=== PATIENT | female | born 1945 | race Caucasian/White ===

== ENCOUNTER 2022-05-09 06:40 | Inpatient (IN) | payer MEDICARE, OTHER, SELFPAY ==
[2022-05-09] VITALS (26 sets, daily range): BP systolic 65–154; BP diastolic 41–69; PULSE 73–90; RESP 14–28; TEMP 36.4–37.6; O2SAT 77–98; BMI 19.2; BMI 18.7
--- NOTE | 2022-05-09 06:51 | RAD_ITS ---
STUDY: X-RAY CHEST REASON FOR EXAM: Female, 76 years old. Cough TECHNIQUE: Single AP portable view of the chest. COMPARISON: None. FINDINGS: EKG electrodes are seen. There is hyperinflation of the lungs consistent with chronic obstructive lung disease (COPD). Increased linear markings at the right lung base suggestive of scarring. Blunting of the costophrenic angles bilaterally. Normal size heart. Calcified bilateral hilar lymph nodes. Normal visualized pulmonary arteries. Normal visualized aortic arch and descending thoracic aorta. Normal visualized thoracic spine. Right calcific tendinitis. There is no demonstrated abnormality of the visualized soft tissue structures of the upper abdomen. RAD/Chest 1 View (Portable) IMPRESSION: Hyperinflation and COPD with scarring at the right lung base. Electronically Signed: Alan Miranda MD at 9:16 EST ,
--- NOTE | 2022-05-09 06:51 | EKG12_ITS ---
Test Reason : Blood Pressure : / mmHG Vent. Rate : 076 BPM Atrial Rate : 076 BPM P-R Int : 144 ms QRS Dur : 074 ms QT Int : 404 ms P-R-T Axes : 080 063 058 degrees QTc Int : 454 ms Normal sinus rhythm Nonspecific ST and T wave abnormality Abnormal ECG Confirmed by KIET CLIFFORD, ANDREW ([id number]), news videotape editor EBER RICARDO ([id number]) on 05/10/2022 9:16:11 AM Referred By: CYNDEE Confirmed By:ANDREW SANTA MD
--- NOTE | 2022-05-09 06:54 | ED.VIS.DYS ---
HPI <Dr. Marc Claire, DO - Last Filed: 05/09/22 07:05> History of Present Illness Chief Complaint: Shortness of Breath Informant: patient Onset/Context/Timing Onset: Days Context: gradual Timing: Continuous Worsened by: Nothing Relieved by: Nothing Associated Symptoms cough, rhinorrhea and clear sputum; Negative for post nasal drip, ear pain, fever, sore throat, subjective, chills or sweats Narrative Narrative: Patient presents with shortness of breath that has been getting worse over the past few days. Patient states she has been coughing up some clear sputum. Patient feels congested in her chest. Patient states it feels like there is heaviness in her chest. Patient admits to some rhinorrhea. Patient admits to some nausea and vomiting. Patient denies any fevers or chills. Patient denies any neck pain. Patient states she does have some pain between her shoulder blades. PFSH <Dr. 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 0.5 mg-joe-Zn tablet (Caltrate + D3 Plus Minerals) 1 tab PO DAILY SUPPLEMENT 05/09/22 [History Last Taken 05/08/22] fwhunwdlhsgcdiag-PNQ-okuyisx 2 mg-20 mg-325 mg effervescent tablet 2 ea PO BID PRN Heartburn 05/09/22 [History Last Taken 05/08/22] cholecalciferol (vitamin D3) 25 mcg (1,000 unit) tablet (Vitamin D3) 25 mcg PO DAILY SUPPLEMENT 05/09/22 [History Last Taken 05/08/22] ginkgo biloba 40 mg tablet 40 mg PO DAILY SUPPLEMENT 05/09/22 [History Last Taken 05/08/22] vaorvzhcmcpf-bgtvlrhl-kanmuo tablet 1 tab PO DAILY HEALTH MAINTENANCE 05/09/22 [History Last Taken 05/08/22] nicotine (polacrilex) 4 mg gum (Nicorette) 4 mg buccal Q2H 05/09/22 [History Last Taken 05/08/22] Allergy/AdvReac Type Severity Reaction Status Date / Time No Known Allergies Allergy Verified 05/09/22 06:41 Surgical History no surgical history no surgical history Social History Smoking Status: Current some day smoker tobacco type: cigarettes ROS <Dr. Marc Claire DO - Last Filed: 05/09/22 07:05> ROS ED Constitutional Constitutional ED: Denies chills or fever(s) Eyes Eyes: Denies blurry vision or change in vision ENT ENT ED: Reports rhinorrhea; Denies sore throat Cardiovascular Cardiovascular: Reports chest pain; Denies palpitations Respiratory/Chest Respiratory/Chest: Reports cough, dyspnea and sputum Gastrointestinal Gastrointestinal: Reports nausea and vomiting Genitourinary Genitourinary ED: Denies dysuria or hematuria Musculoskeletal Musculoskeletal: Denies back pain or neck pain Integumentary Denies abscess or rash Neurologic Neurologic: Denies headache(s) or weakness Allergic/Immunologic Allergic/Immunologic ED: Denies mouth swelling or urticaria EXAM <Dr. Marc Claire DO - Last Filed: 05/09/22 07:05> Physical Exam Const Vital Signs: 05/09/22 06:40 05/09/22 06:41 05/09/22 06:43 Temperature 99.2 F H 99.1 F Temperature Source Temporal Temporal Pulse Rate 88 88 Respiratory Rate 14 14 Respiratory Effort Respiratory Depth Respiratory Pattern Blood Pressure 154/69 H 154/69 H Blood Pressure Mean 97 97 Pulse Ox 77 93 77 Oxygen Delivery Method Room Air Nasal Cannula Room Air Oxygen Flow Rate (L/min) 4 05/09/22 06:45 05/09/22 07:01 05/09/22 07:02 Temperature Temperature Source Pulse Rate 85 Respiratory Rate 20 H Respiratory Effort Normal Respiratory Depth Normal Respiratory Pattern Normal Normal Blood Pressure Blood Pressure Mean Pulse Ox 95 Oxygen Delivery Method Nasal Cannula Nasal Cannula Oxygen Flow Rate (L/min) 4 4 05/09/22 07:43 05/09/22 07:57 05/09/22 09:12 Temperature 99.1 F Temperature Source Temporal Pulse Rate 82 88 84 Respiratory Rate 16 22 H 23 H Respiratory Effort Respiratory Depth Respiratory Pattern Tachypnea Blood Pressure 116/55 L 111/51 L Blood Pressure Mean 75 71 Pulse Ox 98 95 Oxygen Delivery Method Nasal Cannula Oxygen Flow Rate (L/min) 4 05/09/22 08:43 05/09/22 09:56 05/09/22 10:52 Temperature 99.0 F Temperature Source Temporal Pulse Rate 90 Respiratory Rate 24 H Respiratory Effort Respiratory Depth Respiratory Pattern Blood Pressure 110/51 L Blood Pressure Mean 70 Pulse Ox 98 96 90 Oxygen Delivery Method Nasal Cannula Nasal Cannula Nasal Cannula Oxygen Flow Rate (L/min) 4 3 1 05/09/22 10:53 Temperature Temperature Source Pulse Rate 77 Respiratory Rate 28 H Respiratory Effort Respiratory Depth Respiratory Pattern Blood Pressure 85/41 L Blood Pressure Mean 55 Pulse Ox 93 Oxygen Delivery Method Nasal Cannula Oxygen Flow Rate (L/min) 3 Positive well nourished and well developed General Appearance ED: well developed and NAD HEENT Reports moist mucous membranes Neck supple and no JVD Resp normal respiratory effort Auscultation: rhonchi and diminished lung sounds Cardio regular rate and regular rhythm Neuro oriented x3, CN's II-XII intact bilaterally and no sensory deficits noted Sensorium / Orientation: alert Motor Exam: strength 5/5 throughout <Dr. Romero Mazariegos MD - Last Filed: 05/09/22 11:35> Physical Exam Const Vital Signs: 05/09/22 06:40 05/09/22 06:41 05/09/22 06:43 Temperature 99.2 F H 99.1 F Temperature Source Temporal Temporal Pulse Rate 88 88 Respiratory Rate 14 14 Respiratory Effort Respiratory Depth Respiratory Pattern Blood Pressure 154/69 H 154/69 H Blood Pressure Mean 97 97 Pulse Ox 77 93 77 Oxygen Delivery Method Room Air Nasal Cannula Room Air Oxygen Flow Rate (L/min) 4 05/09/22 06:45 05/09/22 07:01 05/09/22 07:02 Temperature Temperature Source Pulse Rate 85 Respiratory Rate 20 H Respiratory Effort Normal Respiratory Depth Normal Respiratory Pattern Normal Normal Blood Pressure Blood Pressure Mean Pulse Ox 95 Oxygen Delivery Method Nasal Cannula Nasal Cannula Oxygen Flow Rate (L/min) 4 4 05/09/22 07:43 05/09/22 07:57 05/09/22 09:12 Temperature 99.1 F Temperature Source Temporal Pulse Rate 82 88 84 Respiratory Rate 16 22 H 23 H Respiratory Effort Respiratory Depth Respiratory Pattern Tachypnea Blood Pressure 116/55 L 111/51 L Blood Pressure Mean 75 71 Pulse Ox 98 95 Oxygen Delivery Method Nasal Cannula Oxygen Flow Rate (L/min) 4 05/09/22 08:43 05/09/22 09:56 05/09/22 10:52 Temperature 99.0 F Temperature Source Temporal Pulse Rate 90 Respiratory Rate 24 H Respiratory Effort Respiratory Depth Respiratory Pattern Blood Pressure 110/51 L Blood Pressure Mean 70 Pulse Ox 98 96 90 Oxygen Delivery Method Nasal Cannula Nasal Cannula Nasal Cannula Oxygen Flow Rate (L/min) 4 3 1 05/09/22 10:53 Temperature Temperature Source Pulse Rate 77 Respiratory Rate 28 H Respiratory Effort Respiratory Depth Respiratory Pattern Blood Pressure 85/41 L Blood Pressure Mean 55 Pulse Ox 93 Oxygen Delivery Method Nasal Cannula Oxygen Flow Rate (L/min) 3 [facility] <Dr. Marc Claire, DO - Last Filed: 05/09/22 07:05> [facility] Narrative Medical decision making narrative: EKG was obtained. On my interpretation, it showed a normal sinus rhythm with a rate of 76. [place] interval, QRS interval, and QTc intervals were all normal. [place] was normal. There are nonspecific ST-T wave changes. Sepsis labs were ordered. Patient was given a DuoNeb aerosol here. Portable chest x-ray was ordered. Care of the patient was turned over to the oncoming physician. Patient will likely need to be admitted because of her hypoxia of 77% on room air. Lab Data Labs: Laboratory Results - last 24 hr 05/09/22 05/09/22 05/09/22 07:00 07:00 07:00 WBC 4.3 L RBC 4.70 Hgb 15.0 Hct 45.4 MCV 96.6 MCH 31.9 MCHC 33.0 RDW Std Deviation 46.5 H RDW Coeff of James 12.9 Plt Count 211 MPV 10.1 Immature Gran % (Auto) 0.000 Neut % (Auto) 61.3 Lymph % (Auto) 26.6 [place] % (Auto) 11.9 H Eos % (Auto) 0.0 Baso % (Auto) 0.2 Absolute Neuts (auto) 2.6 Absolute Lymphs (auto) 1.14 Nucleated RBC % 0 PT 12.9 INR 1.0 APTT 26.8 Sodium 138 Potassium 4.1 Chloride 102 Carbon Dioxide 30.0 Anion Gap 6 BUN 11 Creatinine 0.72 Estim Creat Clear Calc 35.45 Est GFR (MDRD) Af Amer 101 Est GFR (MDRD) Non-Af 83 BUN/Creatinine Ratio 15.2 Glucose 116 H Lactic Acid Calcium 8.7 Total Bilirubin 0.50 AST 24 ALT 20 Alkaline Phosphatase 67 Troponin I High Sens 9 Total Protein 7.1 Albumin 3.8 Globulin 3.3 Albumin/Globulin Ratio 1.2 Urine Color Urine Clarity Urine pH Ur Specific [place] Urine Protein Urine Glucose (UA) Urine Ketones Urine Occult Blood Urine Nitrite Urine Bilirubin Urine Urobilinogen Ur Leukocyte Esterase Urine RBC Urine WBC Ur Squamous Epith Cells Urine Bacteria Urine Mucus 05/09/22 05/09/22 07:00 10:07 WBC RBC Hgb Hct MCV MCH MCHC RDW Std Deviation RDW Coeff of James Plt Count MPV Immature Gran % (Auto) Neut % (Auto) Lymph % (Auto) [place] % (Auto) Eos % (Auto) Baso % (Auto) Absolute Neuts (auto) Absolute Lymphs (auto) Nucleated RBC % PT INR APTT Sodium Potassium Chloride Carbon Dioxide Anion Gap BUN Creatinine Estim Creat Clear Calc Est GFR (MDRD) Af Amer Est GFR (MDRD) Non-Af BUN/Creatinine Ratio Glucose Lactic Acid 0.9 Calcium Total Bilirubin AST ALT Alkaline Phosphatase Troponin I High Sens Total Protein Albumin Globulin Albumin/Globulin Ratio Urine Color Yellow Urine Clarity Clear Urine pH 5.0 Ur Specific [place] 1.030 Urine Protein 15 H Urine Glucose (UA) Normal Urine Ketones 150 A* Urine Occult Blood 10 H Urine Nitrite Negative Urine Bilirubin Negative Urine Urobilinogen Normal Ur Leukocyte Esterase 25 H Urine RBC 0-5 SEEN Urine WBC 0-5 SEEN Ur Squamous Epith Cells 0-5 SEEN Urine Bacteria 0 SEEN Urine Mucus 4+ Radiography Diagnostic Testing: Clinical Impression(s) from Imaging Studies Chest X-Ray 05/09/22 06:51 IMPRESSION: Hyperinflation and COPD with scarring at the right lung base. Electronically Signed: Alan Miranda MD at 9:16 EST Reading Location ID and State: [address] [place] [address] , Service support , EKG Initial EKG: Attestation: I personally reviewed and interpreted this EKG as follows: Interpretation: Sinus Rhythm (76) and Non-Specific ST Changes Prior EKG tracings: not available for review Prior: No Prior <Dr. Romero Mazariegos MD - Last Filed: 05/09/22 11:35> [facility] Narrative Medical decision making narrative: EKG was obtained. On my interpretation, it showed a normal sinus rhythm with a rate of 76. [place] interval, QRS interval, and QTc intervals were all normal. [place] was normal. There are nonspecific ST-T wave changes. Sepsis labs were ordered. Patient was given a DuoNeb aerosol here. Portable chest x-ray was ordered. Care of the patient was turned over to the oncoming physician. Patient will likely need to be admitted because of her hypoxia of 77% on room air. I went and saw the patient also. I got history. Patient is actually on no medications. She has had no surgeries. She states she does have a history of COPD but has never been on inhalers. She has also not seen a physician for years. She states for the last 4 days she started feeling ill. She just did not have a lot of energy. Her appetite has been down. She feels a little dehydrated. She has been coughing. She brings up a little bit of clear sputum. She states she may have had some mild chills and fevers but never high enough that she felt the need to check her temperature. She denies chest pains. But she does feel congested. She is still smoking a small amount. When I see her she had finished her first treatment and was feeling a little bit better. She had oxygen at 98% on 4 L so we cut that back to 3 L and will follow her. We are pending further results. We tried to get the patient off oxygen. We got her down to 2 L and she was saturating in the mid to low 93% range. We dropped her to 1 L and she desaturated into the 80s and felt dyspneic. She is moved back up to 3 L and her saturations are 96 to 97% she feels better. She is moving better air. But with her hypoxia and symptoms I do not think we can get her home at this time. White count is just a little bit low. Hemoglobin and platelets are normal. INR PTT are normal. Electrolytes show no acute abnormalities LFTs are normal. Lactate is negative. Troponin is negative. Urine is a bit concentrated showing some degree of dehydration but is otherwise normal. Patient's blood pressure was a bit low. However, I went and checked her. It ends up that the blood pressure cuff was quite large and not placed well. We have had several blood pressure checks that are all about 110 over 50s now. She states her blood pressure is always been on the lower side. She does not look sick septic or toxic. We have added procalcitonin and antibiotics as an adjunctive therapy. We will get her to PCU at this time rather than ICU. Lab Data Attestation: I reviewed the patient's lab results. Labs: Laboratory Results - last 24 hr 05/09/22 05/09/22 05/09/22 07:00 07:00 07:00 WBC 4.3 L RBC 4.70 Hgb 15.0 Hct 45.4 MCV 96.6 MCH 31.9 MCHC 33.0 RDW Std Deviation 46.5 H RDW Coeff of James 12.9 Plt Count 211 MPV 10.1 Immature Gran % (Auto) 0.000 Neut % (Auto) 61.3 Lymph % (Auto) 26.6 [place] % (Auto) 11.9 H Eos % (Auto) 0.0 Baso % (Auto) 0.2 Absolute Neuts (auto) 2.6 Absolute Lymphs (auto) 1.14 Nucleated RBC % 0 PT 12.9 INR 1.0 APTT 26.8 Sodium 138 Potassium 4.1 Chloride 102 Carbon Dioxide 30.0 Anion Gap 6 BUN 11 Creatinine 0.72 Estim Creat Clear Calc 35.45 Est GFR (MDRD) Af Amer 101 Est GFR (MDRD) Non-Af 83 BUN/Creatinine Ratio 15.2 Glucose 116 H Lactic Acid Calcium 8.7 Total Bilirubin 0.50 AST 24 ALT 20 Alkaline Phosphatase 67 Troponin I High Sens 9 Total Protein 7.1 Albumin 3.8 Globulin 3.3 Albumin/Globulin Ratio 1.2 Urine Color Urine Clarity Urine pH Ur Specific [place] Urine Protein Urine Glucose (UA) Urine Ketones Urine Occult Blood Urine Nitrite Urine Bilirubin Urine Urobilinogen Ur Leukocyte Esterase Urine RBC Urine WBC Ur Squamous Epith Cells Urine Bacteria Urine Mucus 05/09/22 05/09/22 07:00 10:07 WBC RBC Hgb Hct MCV MCH MCHC RDW Std Deviation RDW Coeff of James Plt Count MPV Immature Gran % (Auto) Neut % (Auto) Lymph % (Auto) [place] % (Auto) Eos % (Auto) Baso % (Auto) Absolute Neuts (auto) Absolute Lymphs (auto) Nucleated RBC % PT INR APTT Sodium Potassium Chloride Carbon Dioxide Anion Gap BUN Creatinine Estim Creat Clear Calc Est GFR (MDRD) Af Amer Est GFR (MDRD) Non-Af BUN/Creatinine Ratio Glucose Lactic Acid 0.9 Calcium Total Bilirubin AST ALT Alkaline Phosphatase Troponin I High Sens Total Protein Albumin Globulin Albumin/Globulin Ratio Urine Color Yellow Urine Clarity Clear Urine pH 5.0 Ur Specific [place] 1.030 Urine Protein 15 H Urine Glucose (UA) Normal Urine Ketones 150 A* Urine Occult Blood 10 H Urine Nitrite Negative Urine Bilirubin Negative Urine Urobilinogen Normal Ur Leukocyte Esterase 25 H Urine RBC 0-5 SEEN Urine WBC 0-5 SEEN Ur Squamous Epith Cells 0-5 SEEN Urine Bacteria 0 SEEN Urine Mucus 4+ Radiography Diagnostic Testing: Clinical Impression(s) from Imaging Studies Chest X-Ray 05/09/22 06:51 IMPRESSION: Hyperinflation and COPD with scarring at the right lung base. Electronically Signed: Alan Miranda MD at 9:16 EST , Discharge Plan Dx/Rx/DC Orders Clinical Impression: Hypoxia, Dyspnea, Acute exacerbation of chronic obstructive pulmonary disease Disposition Disposition: Acute Care [facility]
[2022-05-09] MEDS: Ipratropium/Albuterol Sulfate 3 ML AMPUL.NEB INHALATION ×2 (07:02→19:12)
[2022-05-09 07:16] LABS: Absolute Lymphocyte Count 1.14 X10^3/uL (0.83-4.51); Absolute Neutrophil Count 2.6 X10^3/uL (2.0-7.7); Basophil# 0.01 X10^3/uL; Basophil% 0.2 % (0-1); Hematocrit 45.4 % (37-47); Lymphocyte # 1.14 X10^3/ul (0.83-4.51); Lymphocyte % 26.6 % (19-41); Mean Corpuscular Hgb 31.9 pg (27.0-32.0); Mean Corpuscular Volume 96.6 fL (81-99); Mean Platelet Vol. 10.1 fl (6.2-12.0); Monocyte# 0.51 X10^3/uL; Monocyte% 11.9 % (0-10); NRBC Flagged by Analyzer 0 % (0-5); Neutrophil # 2.62 X10^3/uL (2.7-7.7); Neutrophil % 61.3 % (47-70); Platelet Count 211 K/mm3 (150-450); RBC Distribution Width CV 12.9 % (11.6-14.6); RBC Distribution Width SD 46.5 fl (35.1-43.9); White Blood Count 4.3 K/mm3 (4.4-11.0)
[2022-05-09 07:28] LABS: ALB/GLOB Ratio 1.2 RATIO (0.9-2.4); AST(SGOT) 24 U/L (15-37); Alanine Aminotransfer ALT/SGPT 20 U/L (13-56); Albumin, Serum 3.8 g/dL (3.2-5.0); Alkaline Phosphatase 67 U/L (45-117); Anion Gap 6 (5-15); BUN 11 mg/dL (7-18); BUN/Creat Ratio 15.2 RATIO (10-20); Calcium,Total 8.7 mg/dL (8.5-10.1); Chloride 102 mmol/L (98-107); Creatinine, Serum 0.72 mg/dL (0.55-1.02); EST Glomerular Filtration Rate 83 mL/min (>60); Est Glom Filt Rate - Afr Amer 101 mL/min (>60); Estimated Creatinine Clearance 35.45 ml/min; Globulin 3.3 g/dL (2.2-4.2); Glucose 116 mg/dL (74-106); Potassium 4.1 mmol/L (3.5-5.1); Protein, Total 7.1 g/dL (6.4-8.2); Sodium Level 138 mmol/L (136-145); Troponin-I HS 9 pg/mL (3.0-54.0)
[2022-05-09 07:35] LABS: Prothrombin Time (Protime)PT. 12.9 SECONDS (11.7-14.9)
[2022-05-09 07:37] LABS: Partial Thromboplast Time 26.8 Seconds (24.1-36.2)
[2022-05-09 07:42] LABS: Lactic Acid 0.9 mmol/L (0.4-1.9)
[2022-05-09] MEDS: Albuterol 2.5 MG/3 ML VIAL.NEB. INHALATION (07:57)
[2022-05-09] MEDS: MethylPREDNISolone 125 MG/2 ML Vial IV (07:57)
[2022-05-09 10:12] LABS: Bacteria 0 SEEN /hpf (None Seen)
[2022-05-09 10:16] LABS: Color, Urine Yellow (Yellow); Glucose, Dipstick Normal (Normal); Leukocyte Esterase-Dipstick 25 /ul (Negative); Nitrite-Dipstick Negative (Negative); Occult Blood-Urine 10 /ul (Negative); Protein-Dipstick 15 mg/dl (Negative); Urine Bilirubin Dipstick Negative (Negative); Urine Clarity Clear (Clear); Urine Urobilinogen Normal (Normal)
[2022-05-09 10:18] LABS: Ketone-Dipstick 150 mg/dl (Negative)
[2022-05-09 10:22] LABS: Mucous, Urine 4+ /hpf (<or=2+)
[2022-05-09 10:23] LABS: Red Blood Cells-Urine 0-5 SEEN /hpf (0-5); Squamous Epithelial Cells - UA 0-5 SEEN /hpf (5-10); White Blood Cells 0-5 SEEN /hpf (0-5)
[2022-05-09] MEDS: 0.9% Normal Saline 1,000 ML 999 ML IV (11:04)
--- NOTE | 2022-05-09 11:14 | HP.PCM.HOS_ITS ---
[facility] - General General Date of Admission: 05/09/22 Date of Service: 05/09/22 Chief Complaint: Progressive worsening of shortness of breath for 3 days. Worsening of cough with sputum production. HPI Narrative JOYCELYN MARINELLI, is a 76 F with history of chronic smoking and possible COPD came to ER with shortness of breath worsening for last 3 days. She has also had worsening of cough for last 3 days along with the sputum production. Her sputum is thick and clear. She denies any fever or sweating but has not measured temperature at home. Here in the ER she was afebrile. She had increased paroxysms of cough and had mild soreness in the interscapular area and the back. In the ED, patient was initially normotensive but got hypotensive about 11:00 and was restarted with IV fluid. Blood pressure currently is 112/66. She is also tachypneic and requires 2 L of oxygen.Chest x-ray individually reviewed shows hyperinflation, flattening of the diaphragm. Bibasilar atelectasis. No acute infiltrate. Past medical history: No formal testing PFT but Bearse diagnosis of COPD probably based on Imaging testStill smokes 3 to 4 cigarettes/day. Denies diabetes mellitus and hypertension. No coronary artery disease or other cardiac disease. Past surgical history: Significant. Social history: Started smoking at teenage, multiple relapses and remissions. Currently smokes 3 to 4 cigarettes/day. Denies chronic alcohol or substance us e. Family history: Patient's mother had COPD. Denies history of lung cancer in family. PFSH Medical History no medical history Home Medications calcium carb 300 mg-D3 800 unit-mag ox 25 mg-coppersmith apprentice 0.5 mg-joe-Zn tablet (Caltrate + D3 Plus Minerals) 1 tab PO DAILY SUPPLEMENT 05/09/22 [History Last Taken 05/08/22] cqumcimucwxeentr-APQ-vlxqmth 2 mg-20 mg-325 mg effervescent tablet 2 ea PO BID PRN Heartburn 05/09/22 [History Last Taken 05/08/22] cholecalciferol (vitamin D3) 25 mcg (1,000 unit) tablet (Vitamin D3) 25 mcg PO DAILY SUPPLEMENT 05/09/22 [History Last Taken 05/08/22] ginkgo biloba 40 mg tablet 40 mg PO DAILY SUPPLEMENT 05/09/22 [History Last Taken 05/08/22] vnhtszveulpo-ebtfjbba-evnlwu tablet 1 tab PO DAILY HEALTH MAINTENANCE 05/09/22 [History Last Taken 05/08/22] nicotine (polacrilex) 4 mg gum (Nicorette) 4 mg buccal Q2H 05/09/22 [History Last Taken 05/08/22] Allergy/AdvReac Type Severity Reaction Status Date / Time No Known Allergies Allergy Verified 05/09/22 06:41 Surgical History no surgical history Social History Smoking Status: Current some day smoker tobacco type: cigarettes ROS ROS Narrative Constitutional: Reports fatigue and weakness denies fever. Looks thin, HEENT: Reports systems reviewed and no addt'l complaints, except as documented Respiratory/Chest: As described in HPI Gastrointestinal: Denies coffee ground emesis, hematemesis or vomiting Genitourinary: Denies burning urination or new urinary tract symptoms Musculoskeletal: Denies joint pain and limited range of motion Neurologic: Denies seizure-like activity. No focal weakness or numbness. No history of stroke. skin: No ulcer. No rash Endocrinology: Reports systems reviewed and no addt'l complaints, except as documented Hematologic/Lymphatic: Reports systems reviewed and no addt'l complaints, except as documented Rest 14 ROS are negative except as mentioned in HPI Vital Signs Vital Signs Vital Signs: 05/09/22 06:40 05/09/22 06:41 05/09/22 06:43 Temperature 99.2 F H 99.1 F Temperature Source Temporal Temporal Pulse Rate 88 88 Respiratory Rate 14 14 Respiratory Effort Respiratory Depth Respiratory Pattern Blood Pressure 154/69 H 154/69 H Blood Pressure Mean 97 97 Pulse Ox 77 93 77 Oxygen Delivery Method Room Air Nasal Cannula Room Air Oxygen Flow Rate (L/min) 4 05/09/22 06:45 05/09/22 07:01 05/09/22 07:02 Temperature Temperature Source Pulse Rate 85 Respiratory Rate 20 H Respiratory Effort Normal Respiratory Depth Normal Respiratory Pattern Normal Normal Blood Pressure Blood Pressure Mean Pulse Ox 95 Oxygen Delivery Method Nasal Cannula Nasal Cannula Oxygen Flow Rate (L/min) 4 4 05/09/22 07:43 05/09/22 07:57 05/09/22 09:12 Temperature 99.1 F Temperature Source Temporal Pulse Rate 82 88 84 Respiratory Rate 16 22 H 23 H Respiratory Effort Respiratory Depth Respiratory Pattern Tachypnea Blood Pressure 116/55 L 111/51 L Blood Pressure Mean 75 71 Pulse Ox 98 95 Oxygen Delivery Method Nasal Cannula Oxygen Flow Rate (L/min) 4 05/09/22 08:43 05/09/22 09:56 05/09/22 10:52 Temperature 99.0 F Temperature Source Temporal Pulse Rate 90 Respiratory Rate 24 H Respiratory Effort Respiratory Depth Respiratory Pattern Blood Pressure 110/51 L Blood Pressure Mean 70 Pulse Ox 98 96 90 Oxygen Delivery Method Nasal Cannula Nasal Cannula Nasal Cannula Oxygen Flow Rate (L/min) 4 3 1 05/09/22 10:53 Temperature Temperature Source Pulse Rate 77 Respiratory Rate 28 H Respiratory Effort Respiratory Depth Respiratory Pattern Blood Pressure 85/41 L Blood Pressure Mean 55 Pulse Ox 93 Oxygen Delivery Method Nasal Cannula Oxygen Flow Rate (L/min) 3 Weight Weight: 101 lb 13.657 oz Body Mass Index (BMI) 19.2 Physical Exam Narrative Physical exam: General: Alert, Oriented x3, Cooperative, BMI 18.7 kg/m? HEENT: Atraumatic, PERRLA, EOMI, Normocephalic Oral: No Gingival or Mucosal Lesions/ Ulcerations Neck: Supple, No JVD, Negative Carotid Bruits Lungs: Air entry Severely diminished in both lungs. bilateral expiratory rhonchi and wheezing. Tachypnea. Mild hypoxia Cardiovascular: Regular rate, Regular Rhythm, Normal S1, Normal S2, No murmurs Abdomen: Bowel Sounds Present, Soft, Non Tender, Non-Distended : No renal angle tenderness. No suprapubic tenderness. Extremities: No edema, Capillary Refill Less than 3 Seconds Skin: No rashes, No breakdown Musculoskeletal: No Tenderness to Palpation of Joints or Extremities. Moderate muscle atrophy of extremities. ROM full. Neurological: Cranial nerves II-XII grossly intact, DTR 2+/4 and Symmetrical, Neuro grossly intact Psych/Mental Status: Normal Affect, Appropriate. Results Lab / Micro Data Result Diagrams: 05/09/22 07:00 05/09/22 07:00 Labs: Laboratory Results - last 24 hr 05/09/22 07:00: WBC 4.3 L, RBC 4.70, Hgb 15.0, Hct 45.4, MCV 96.6, MCH 31.9, MCHC 33.0, RDW Std Deviation 46.5 H, RDW Coeff of James 12.9, Plt Count 211, MPV 10.1, Immature Gran % (Auto) 0.000, Neut % (Auto) 61.3, Lymph % (Auto) 26.6, [place] % (Auto) 11.9 H, Eos % (Auto) 0.0, Baso % (Auto) 0.2, Absolute Neuts (auto) 2.6, Absolute Lymphs (auto) 1.14, Nucleated RBC % 0 05/09/22 07:00: PT 12.9, INR 1.0, APTT 26.8 05/09/22 07:00: Sodium 138, Potassium 4.1, Chloride 102, Carbon Dioxide 30.0, Anion Gap 6, BUN 11, Creatinine 0.72, Estim Creat Clear Calc 35.45, Est GFR (MDRD) Af Amer 101, Est GFR (MDRD) Non-Af 83, BUN/Creatinine Ratio 15.2, Glucose 116 H, Calcium 8.7, Total Bilirubin 0.50, AST 24, ALT 20, Alkaline Phosphatase 67, Troponin I High Sens 9, Total Protein 7.1, Albumin 3.8, Globulin 3.3, Albumin/Globulin Ratio 1.2 05/09/22 07:00: Lactic Acid 0.9 05/09/22 10:07: Urine Color Yellow, Urine Clarity Clear, Urine pH 5.0, Ur Specific [place] 1.030, Urine Protein 15 H, Urine Glucose (UA) Normal, Urine Ketones 150 A*, Urine Occult Blood 10 H, Urine Nitrite Negative, Urine Bilirubin Negative, Urine Urobilinogen Normal, Ur Leukocyte Esterase 25 H, Urine RBC 0-5 SEEN, Urine WBC 0-5 SEEN, Ur Squamous Epith Cells 0-5 SEEN, Urine Bacteria 0 SEEN, Urine Mucus 4+ Micro: Microbiology 05/09/22 07:02 Nasal Secretion SARS-CoV-2 & FLU Antigen (Rapid) - Final Radiology Impression Chest X-Ray 05/09/22 06:51 IMPRESSION: Hyperinflation and COPD with scarring at the right lung base. Electronically Signed: Alan Miranda MD at 9:16 EST , Assessment & Plan Assessment/Plan (1) Acute exacerbation of chronic obstructive pulmonary disease: PLAN: Plan Patient 76-year-old female who is being admitted for acute worsening of shortness of breath for 3 along with productive cough and tachypnea. 1. Most likely COPD exacerbation: Patient is being admitted in PCU. She has not been formally diagnosed COPD with PFT. DuoNeb every 4 hourly, Solu-Medrol 40 mg IV every 8 hourly, incentive spirometry, Zithromax, Mucinex and PEP.Sputum culture and blood culture has been ordered. Urinary antigens are ordered. Rapid SARS-CoV-2 and flu antigen are negative. Chest x-ray not showing airspace opacity/consolidation. 2. Hypotension in ED, most likely due to hemodynamic fluid shift: Patient has recovered after IV fluid. Patient not on antihypertensive medication. Continue IV fluid Ringer lactate 100 mL/h. Monitor intake and output 3. Chronic smoker: Patient counseled to quit smoking. On echocardiogram. Patient does not like nicotine patch. 4. Chronic moderate protein calorie malnutrition probably from COPD/smoking: Patient has moderate muscle atrophy of extremities, loss of subcutaneous fat and look overall thin. BMI 18.7 kg/m?. VTE prophylaxis: Moderate risk. Lovenox 40 mg subcu daily Living will/advanced directive/end of life care: Patient stated she had living will when her was alive back in 70s. After discussion of benefits/risks procedures involved with full code, DNR CC arrest and DNR CC, the patient and her daughter near the bedside opted for full code. Patient does want artificial life support including intubation, tube feed, ventilator and/chest compression, central venous catheter, vasopressor and DC shock if needed Total time spent in [id number] encounter in discussion of advanced directive 16 minutes. Clinical Impression(s) from Imaging Studies Chest X-Ray 05/09/22 06:51 IMPRESSION: Hyperinflation and COPD with scarring at the right lung base. Microbiology Past 72 Hours 05/09/22 07:02 Nasal Secretion SARS-CoV-2 & FLU Antigen (Rapid) - Final Laboratory Results 05/09/22 07:00: WBC 4.3 L, RBC 4.70, Hgb 15.0, Hct 45.4, MCV 96.6, MCH 31.9, MCHC 33.0, RDW Std Deviation 46.5 H, RDW Coeff of James 12.9, Plt Count 211, MPV 10.1, Immature Gran % (Auto) 0.000, Neut % (Auto) 61.3, Lymph % (Auto) 26.6, [place] % (Auto) 11.9 H, Eos % (Auto) 0.0, Baso % (Auto) 0.2, Absolute Neuts (auto) 2.6, Absolute Lymphs (auto) 1.14, Nucleated RBC % 0 05/09/22 07:00: PT 12.9, INR 1.0, APTT 26.8 05/09/22 07:00: Sodium 138, Potassium 4.1, Chloride 102, Carbon Dioxide 30.0, Anion Gap 6, BUN 11, Creatinine 0.72, Estim Creat Clear Calc 35.45, Est GFR (MDRD) Af Amer 101, Est GFR (MDRD) Non-Af 83, BUN/Creatinine Ratio 15.2, Glucose 116 H, Calcium 8.7, Total Bilirubin 0.50, AST 24, ALT 20, Alkaline Phosphatase 67, Troponin I High Sens 9, Total Protein 7.1, Albumin 3.8, Globulin 3.3, Albumin/Globulin Ratio 1.2 05/09/22 07:00: Lactic Acid 0.9 05/09/22 07:00: Magnesium Pending 05/09/22 10:07: Urine Color Yellow, Urine Clarity Clear, Urine pH 5.0, Ur Specific [place] 1.030, Urine Protein 15 H, Urine Glucose (UA) Normal, Urine Ketones 150 A*, Urine Occult Blood 10 H, Urine Nitrite Negative, Urine Bilirubin Negative, Urine Urobilinogen Normal, Ur Leukocyte Esterase 25 H, Urine RBC 0-5 SEEN, Urine WBC 0-5 SEEN, Ur Squamous Epith Cells 0-5 SEEN, Urine Bacteria 0 SEEN, Urine Mucus 4+ 05/09/22 11:20: Procalcitonin 0.13 H Charges/Coding Visit Charges Inpatient E&M: 73605 Init Hosp L3 Procedures Hospitalists Procedures: 76670 Advncd Care Plan 30 Min
[2022-05-09] MEDS: Ceftriaxone 1 GM/50 ML BAG IV (11:58)
[2022-05-09 12:06] LABS: Procalcitonin 0.13 ng/mL (0.00-0.09)
[2022-05-09] MEDS: Enoxaparin 40 MG/0.4 ML Syringe SC (12:41)
[2022-05-09] MEDS: Lactated Ringers 1,000 ML 100 ML IV ×2 (12:41→20:10)
[2022-05-09 12:47] LABS: Magnesium 2.2 mg/dL (1.6-2.6)
[2022-05-09] MEDS: Azithromycin 250 MG Tablet 500 MG PO (13:31)
[2022-05-09] MEDS: guaiFENesin 1,200 MG Tablet 1200 MG PO ×2 (13:31→20:08)
[2022-05-09] MEDS: Benzonatate 100 MG Capsule 200 MG PO ×2 (13:37→20:09)
[2022-05-09] MEDS: Ensure Plus High Protein 120 ML LIQUID PO (16:45)
[2022-05-10] VITALS (15 sets, daily range): BP systolic 107–119; BP diastolic 47–58; PULSE 53–81; RESP 16–20; TEMP 36.6–37.2; O2SAT 92–98
[2022-05-10] MEDS: Benzonatate 100 MG Capsule 200 MG PO ×3 (06:02→21:22)
[2022-05-10 06:24] LABS: Absolute Lymphocyte Count 1.08 X10^3/uL (0.83-4.51); Absolute Neutrophil Count 4.2 X10^3/uL (2.0-7.7); Basophil# 0.01 X10^3/uL; Basophil% 0.2 % (0-1); Hematocrit 37.9 % (37-47); Hemoglobin 12.7 g/dL (12.0-15.0); Lymphocyte # 1.08 X10^3/ul (0.83-4.51); Lymphocyte % 17.8 % (19-41); Mean Corp Hgb Conc 33.5 g/dL (32-36); Mean Corpuscular Hgb 32.2 pg (27.0-32.0); Mean Corpuscular Volume 95.9 fL (81-99); Monocyte# 0.76 X10^3/uL; Monocyte% 12.5 % (0-10); NRBC Flagged by Analyzer 0 % (0-5); Platelet Count 187 K/mm3 (150-450); RBC Distribution Width CV 12.9 % (11.6-14.6); RBC Distribution Width SD 45.8 fl (35.1-43.9); Red Blood Count 3.95 M/mm3 (4.2-5.4); White Blood Count 6.1 K/mm3 (4.4-11.0)
[2022-05-10] MEDS: Ipratropium/Albuterol Sulfate 3 ML AMPUL.NEB INHALATION ×5 (06:50→23:45)
[2022-05-10 06:51] LABS: Anion Gap 2 (5-15); BUN 10 mg/dL (7-18); Calcium,Total 8.3 mg/dL (8.5-10.1); Chloride 106 mmol/L (98-107); Creatinine, Serum 0.45 mg/dL (0.55-1.02); EST Glomerular Filtration Rate 143 mL/min (>60); Est Glom Filt Rate - Afr Amer 173 mL/min (>60); Estimated Creatinine Clearance 34.99 ml/min; Glucose 122 mg/dL (74-106); Sodium Level 139 mmol/L (136-145)
[2022-05-10] MEDS: Cholecalciferol (VIT D3) 25 MCG TABLET (1,000 UNITS) PO (08:24)
[2022-05-10] MEDS: Azithromycin 250 MG Tablet 500 MG PO (08:24)
[2022-05-10] MEDS: guaiFENesin 1,200 MG Tablet 1200 MG PO ×2 (08:24→21:21)
[2022-05-10] MEDS: Enoxaparin 40 MG/0.4 ML Syringe SC (08:24)
[2022-05-10] MEDS: Ensure Plus High Protein 120 ML LIQUID PO (08:25)
--- NOTE | 2022-05-10 08:46 | PN.HOSP_ITS ---
Subjective Subjective Follow-up for COPD exacerbation Objective Data Objective Data Vital Signs: Vital Signs Temp Pulse Resp BP Pulse Ox O2 Del Method O2 Flow Rate 98.4 F 72 20 H 116/57 L 95 Nasal Cannula 2 05/10/22 05:10 05/10/22 07:00 05/10/22 06:50 05/10/22 05:10 05/10/22 06:50 05/10/22 06:50 05/10/22 06:50 Oxygen Flow Rate (L/min) 2 Oxygen Delivery Method Nasal Cannula Weight: 100 lb 8.493 oz Body Mass Index (BMI) 18.7 Intake & Output: Intake and Output for Last 24 Hours 05/08/22 05/09/22 05/10/22 23:59 23:59 23:59 Intake Total 2198.33 / 2198.33 1000 / 1000 Balance 2198.33 / 2198.33 1000 / 1000 Lab / Micro Data Result Diagrams: 05/10/22 05:40 05/10/22 05:40 Labs: Laboratory Results - last 24 hr 05/09/22 07:00: Magnesium 2.2 05/09/22 10:07: Urine Color Yellow, Urine Clarity Clear, Urine pH 5.0, Ur Specific [place] 1.030, Urine Protein 15 H, Urine Glucose (UA) Normal, Urine Ketones 150 A*, Urine Occult Blood 10 H, Urine Nitrite Negative, Urine Bilirubin Negative, Urine Urobilinogen Normal, Ur Leukocyte Esterase 25 H, Urine RBC 0-5 SEEN, Urine WBC 0-5 SEEN, Ur Squamous Epith Cells 0-5 SEEN, Urine Bacteria 0 SEEN, Urine Mucus 4+ 05/09/22 11:20: Procalcitonin 0.13 H 05/10/22 05:40: WBC 6.1, RBC 3.95 L, Hgb 12.7, Hct 37.9, MCV 95.9, MCH 32.2 H, MCHC 33.5, RDW Std Deviation 45.8 H, RDW Coeff of James 12.9, Plt Count 187, MPV 10.0, Immature Gran % (Auto) 0.500, Neut % (Auto) 69.0, Lymph % (Auto) 17.8 L, [place] % (Auto) 12.5 H, Eos % (Auto) 0.0, Baso % (Auto) 0.2, Absolute Neuts (auto) 4.2, Absolute Lymphs (auto) 1.08, Nucleated RBC % 0 05/10/22 05:40: Sodium 139, Potassium 4.0, Chloride 106, Carbon Dioxide 31.0, Anion Gap 2 L, BUN 10, Creatinine 0.45 L, Estim Creat Clear Calc 34.99, Est GFR (MDRD) Af Amer 173, Est GFR (MDRD) Non-Af 143, BUN/Creatinine Ratio 22.0 H, Glucose 122 H, Calcium 8.3 L Micro: Microbiology 05/09/22 16:10 Urine, Random Streptococcus pneumoniae Antigen (M - Final 05/09/22 16:10 Urine, Random Legionella Antigen - Final 05/09/22 07:02 Nasal Secretion SARS-CoV-2 & FLU Antigen (Rapid) - Final Radiography Diagnostic Testing: Radiology Impression Chest X-Ray 05/09/22 06:51 IMPRESSION: Hyperinflation and COPD with scarring at the right lung base. Electronically Signed: Alan Miranda MD at 9:16 EST , Physical Exam Narrative Did not significant improvement in her shortness of breath wheezing. Patient is still short of breath. Physical exam: General: Alert, Oriented x3, Cooperative, BMI 18.7 kg/m? HEENT: Atraumatic, PERRLA, EOMI, Normocephalic Oral: No Gingival or Mucosal Lesions/ Ulcerations Neck: Supple, No JVD, Negative Carotid Bruits Lungs: Air entry Severely diminished in both lungs. bilateral expiratory rhonchi and wheezing. Mild hypoxia Cardiovascular: Regular rate, Regular Rhythm, Normal S1, Normal S2, No murmurs Abdomen: Bowel Sounds Present, Soft, Non Tender, Non-Distended : No renal angle tenderness. No suprapubic tenderness. Extremities: No edema, Capillary Refill Less than 3 Seconds Skin: No rashes, No breakdown Musculoskeletal: No Tenderness to Palpation of Joints or Extremities. Moderate muscle atrophy of extremities. ROM full. Neurological: Cranial nerves II-XII grossly intact, DTR 2+/4 and Symmetrical, Neuro grossly intact Psych/Mental Status: Normal Affect, Appropriate. Assessment & Plan Assessment/Plan (1) Acute exacerbation of chronic obstructive pulmonary disease: PLAN: Plan Patient 76-year-old female who is being admitted for acute worsening of shortness of breath for 3 along with productive cough and tachypnea. 1. Most likely COPD exacerbation: Patient is being admitted in PCU. She has not been formally diagnosed COPD with PFT. DuoNeb every 4 hourly, Solu-Medrol 40 mg IV every 8 hourly, incentive spirometry, Zithromax, Mucinex and PEP.Sputum culture and blood culture has been ordered. Urinary antigens are ordered. Rapid SARS-CoV-2 and flu antigen are negative. Chest x-ray not showing airspace opacity/consolidation. 05/10: Continue bronchodilator DuoNeb every 4 hourly, IV Solu-Medrol, Mucinex, incentive spirometry and Pep. No fever. Tachypnea is better. Urinary antigens for Legionella and Streptococcus are negative. 2. Hypotension in ED, most likely due to hemodynamic fluid shift: Patient has recovered after IV fluid. Patient not on antihypertensive medication. Continue IV fluid Ringer lactate 100 mL/h. Monitor intake and output 05/10: Patient is maintaining blood pressure 116/57. Hypotension resolved. Procalcitonin mildly elevated. I do not think patient has sepsis therefore sepsis ruled out. 3. Chronic smoker: Patient counseled to quit smoking. On echocardiogram. Patient does not like nicotine patch. 4. Chronic moderate protein calorie malnutrition probably from COPD/smoking: Patient has moderate muscle atrophy of extremities, loss of subcutaneous fat and look overall thin. BMI 18.7 kg/m?. VTE prophylaxis: Moderate risk. Lovenox 40 mg subcu daily Total time of the visit including total time spent in counseling or coordination of care, (more than 50% of the total time, spent in obtaining medical information from nurses and other ancillary care providers,explaining to the patient about labs, imaging, diagnosis and management of active complex medical conditions), , review of labs and imaging is 40 minutes. Living will/advanced directive/end of life care: Patient stated she had living will when her was alive back in 70s. After discussion of benefits/risks procedures involved with full code, DNR CC arrest and DNR CC, the patient and her daughter near the bedside opted for full code. Patient does want artificial life support including intubation, tube feed, ventilator and/chest compression, central venous catheter, vasopressor and DC shock if needed Clinical Impression(s) from Imaging Studies Chest X-Ray 05/09/22 06:51 IMPRESSION: Hyperinflation and COPD with scarring at the right lung base. Microbiology Past 72 Hours 05/09/22 16:10 Urine, Random Streptococcus pneumoniae Antigen (M - Final 05/09/22 16:10 Urine, Random Legionella Antigen - Final 05/09/22 07:02 Nasal Secretion SARS-CoV-2 & FLU Antigen (Rapid) - Final Laboratory Results 05/09/22 07:00: Magnesium 2.2 05/09/22 10:07: Urine Color Yellow, Urine Clarity Clear, Urine pH 5.0, Ur Spec ific [place] 1.030, Urine Protein 15 H, Urine Glucose (UA) Normal, Urine Ketones 150 A*, Urine Occult Blood 10 H, Urine Nitrite Negative, Urine Bilirubin Negative, Urine Urobilinogen Normal, Ur Leukocyte Esterase 25 H, Urine RBC 0-5 SEEN, Urine WBC 0-5 SEEN, Ur Squamous Epith Cells 0-5 SEEN, Urine Bacteria 0 SEEN, Urine Mucus 4+ 05/09/22 11:20: Procalcitonin 0.13 H 05/10/22 05:40: WBC 6.1, RBC 3.95 L, Hgb 12.7, Hct 37.9, MCV 95.9, MCH 32.2 H, MCHC 33.5, RDW Std Deviation 45.8 H, RDW Coeff of James 12.9, Plt Count 187, MPV 10.0, Immature Gran % (Auto) 0.500, Neut % (Auto) 69.0, Lymph % (Auto) 17.8 L, Frio % (Auto) 12.5 H, Eos % (Auto) 0.0, Baso % (Auto) 0.2, Absolute Neuts (auto) 4.2, Absolute Lymphs (auto) 1.08, Nucleated RBC % 0 05/10/22 05:40: Sodium 139, Potassium 4.0, Chloride 106, Carbon Dioxide 31.0, Anion Gap 2 L, BUN 10, Creatinine 0.45 L, Estim Creat Clear Calc 34.99, Est GFR (MDRD) Af Amer 173, Est GFR (MDRD) Non-Af 143, BUN/Creatinine Ratio 22.0 H, Glucose 122 H, Calcium 8.3 L 05/09/22 11:20: Procalcitonin 0.13 H Charges/Coding Visit Charges Inpatient E&M: 56638 Subs Hosp L3
--- NOTE | 2022-05-10 10:50 | CASEMGMT ---
RN BORIS Face to Face with patient for initial transition planning/care coordination assessment. RN CM introduced self and role at [facility]. Patient lying in bed, alert and oriented. Patient willing to participate in assessment and is able to answer all questions appropriately. Care providers, pharmacy, and demographics verified. Patient wishes to discharge home, denies need for home health at this time. Patient states she has no further needs or concerns at this time. CM to follow for discharge planning needs that may arise. PCP: Cyndie Specialists: none Preferred Pharmacy: [facility]ie Abbott; [facility] Retail at discharge Insurance: [facility], [place] Prescription Benefit: yes Living Will/HPOA: yes, daughter Carmen Lea LNOK: daughter Living Arrangements: Patient lives alone in a 2 story home. Patient states she is independent and able to ambulate stairs. Patient states daughter lives next door. Transportation: self, daughter DME/HHC: Patient denies DME in the home. No previous HHC or SNF. Patient is currently on oxygen, will monitor for home oxygen at discharge. Patient states she prefers [facility] for DME and declines list at this time. Disposition Plan: Patient to discharge home with family support and follow-up plans in place. Brie BOSCH, RN, CM
--- NOTE | 2022-05-10 10:50 | NURSING ---
Patient O2 saturation 95% on 2L, does not wear oxygen at baseline, weaned to 1L at this time.
[2022-05-10] MEDS: 0.9% Saline Lock 10 ML Syringe IV ×2 (13:27→21:27)
[2022-05-11] VITALS (7 sets, daily range): BP systolic 111–118; BP diastolic 50–55; PULSE 76–84; RESP 16–18; TEMP 36.4–37; O2SAT 92–97
[2022-05-11] MEDS: Ipratropium/Albuterol Sulfate 3 ML AMPUL.NEB INHALATION ×3 (03:41→11:16)
--- NOTE | 2022-05-11 04:29 | NURSING ---
Patient Oxygen saturation around 86-88% placed on 1L and came up to 93%
[2022-05-11 05:27] LABS: Absolute Lymphocyte Count 0.93 X10^3/uL (0.83-4.51); Basophil# 0.01 X10^3/uL; Basophil% 0.1 % (0-1); Hematocrit 36.9 % (37-47); Hemoglobin 12.2 g/dL (12.0-15.0); Lymphocyte # 0.93 X10^3/ul (0.83-4.51); Mean Corp Hgb Conc 33.1 g/dL (32-36); Mean Corpuscular Hgb 31.5 pg (27.0-32.0); Mean Corpuscular Volume 95.3 fL (81-99); Monocyte# 0.38 X10^3/uL; Monocyte% 4.5 % (0-10); NRBC Flagged by Analyzer 0 % (0-5); Neutrophil % 83.2 % (47-70); Platelet Count 220 K/mm3 (150-450); RBC Distribution Width CV 13.2 % (11.6-14.6); RBC Distribution Width SD 46.7 fl (35.1-43.9); Red Blood Count 3.87 M/mm3 (4.2-5.4); White Blood Count 8.4 K/mm3 (4.4-11.0)
[2022-05-11] MEDS: 0.9% Saline Lock 10 ML Syringe IV ×2 (05:34→10:12)
[2022-05-11] MEDS: Benzonatate 100 MG Capsule 200 MG PO (05:35)
[2022-05-11 05:52] LABS: Anion Gap 7 (5-15); BUN 13 mg/dL (7-18); BUN/Creat Ratio 24.4 RATIO (10-20); Calcium,Total 8.6 mg/dL (8.5-10.1); Chloride 104 mmol/L (98-107); Creatinine, Serum 0.53 mg/dL (0.55-1.02); EST Glomerular Filtration Rate 119 mL/min (>60); Est Glom Filt Rate - Afr Amer 144 mL/min (>60); Estimated Creatinine Clearance 34.99 ml/min; Glucose 157 mg/dL (74-106); Potassium 3.3 mmol/L (3.5-5.1); Sodium Level 140 mmol/L (136-145)
[2022-05-11] MEDS: Azithromycin 250 MG Tablet 500 MG PO (09:27)
[2022-05-11] MEDS: guaiFENesin 1,200 MG Tablet 1200 MG PO (09:27)
[2022-05-11] MEDS: Cholecalciferol (VIT D3) 25 MCG TABLET (1,000 UNITS) PO (09:27)
[2022-05-11] MEDS: Enoxaparin 40 MG/0.4 ML Syringe SC (09:27)
--- NOTE | 2022-05-11 10:06 | DCINST_ITS ---
Discharge Instructions Diet Discharge Diet: No restrictions Dressing / Incision Call your doctor if you observe: Fever of 101 or Higher, Coldness, Increased Pain, Numbness or Tingling, Change in Color, Inability to urinate, Inability to have a bowel movement, Using more than 1 pad per hour, Shortness of breath, Dizziness, Fainting spells, Swelling in the ankles, Chest pain, Prolonged hiccupping, Increased palpitations (irregular heartbeat), Calf discomfort and Uncontrolled pain Follow Up Care Test Results: Test results from this visit will be discussed in further detail at your follow- up appointment, if applicable. Discharge Plan Admission Admit Date/Time: 05/09/22 11:11 Primary Reason for Your Visit: COPD exacerbation Attending Provider: Domingo Adame Primary Care Provider: Ameena Agee Discharge Orders/Prescriptions Prescriptions: New sennosides-docusate sodium [Stool Softener-Stimulant Laxat] 8.6-50 mg Tablet 2 tab PO BID PRN PRN (Reason: Constipation) Qty: 0 0RF Rx Instructions: OTC benzonatate 100 mg Capsule 200 mg PO TID PRN (Reason: COUGH) Qty: 30 0RF Mucus Relief ER 1,200 mg Tablet Extended Release 12hr 1,200 mg PO BID Qty: 14 0RF prednisone 20 mg tablet 40 mg PO DAILY Qty: 10 0RF omeprazole 40 mg capsule,delayed release(DR/EC) 40 mg PO DAILY Qty: 30 0RF albuterol sulfate 90 mcg/actuation HFA aerosol inhaler 2 puff inhalation Q6H PRN (Reason: shortness of breath or wheezing) Qty: 8.5 0RF Continued ginkgo biloba 40 mg Tablet 40 mg PO DAILY Rx Instructions: give with meal/snack nicotine (polacrilex) [Nicorette] 4 mg Gum 4 mg BUCCAL Q2H swfljibtipfipkbs-ZAB-usfynho 2-20-325 mg Tablet, Effervescent 2 ea PO BID PRN (Reason: Heartburn) undodigethgk-cchvjolu-rhgutt Tablet 1 tab PO DAILY cholecalciferol (vitamin D3) [Vitamin D3] 25 mcg (1,000 unit) Tablet 25 mcg PO DAILY Caltrate + D3 Plus Minerals 300 mg-800 unit -25 mg-0.5 mg Tablet 1 tab PO DAILY Referrals / Follow Up: Ameena Agee MD [Primary Care Provider] - Renan Vyas DO [Med Staff - Active Staff] - Disposition Disposition (needs filled in before D/C Order can be placed): Home, Self Care
--- NOTE | 2022-05-11 11:13 | PCM.DC.SUM ---
Providers Date of Admission: 05/09/22 Date of Discharge: 05/11/22 Primary Care Physician: Dr. Ameena Agee MD Reason For Visit: COPD EXA Diagnosis Discharge Diagnosis (1) Acute exacerbation of chronic obstructive pulmonary disease: Status: Chronic Code(s): J44.1 - Chronic obstructive pulmonary disease with (acute) exacerbation Medications at Discharge Home Medications calcium carb 300 mg-D3 800 unit-mag ox 25 mg-copy room technician 0.5 mg-joe-Zn tablet (Caltrate + D3 Plus Minerals) 1 tab PO DAILY SUPPLEMENT 05/09/22 oeiowwpfgkqlzaiy-KUH-xvvppeq 2 mg-20 mg-325 mg effervescent tablet 2 ea PO BID PRN Heartburn 05/09/22 cholecalciferol (vitamin D3) 25 mcg (1,000 unit) tablet (Vitamin D3) 25 mcg PO DAILY SUPPLEMENT 05/09/22 ginkgo biloba 40 mg tablet 40 mg PO DAILY SUPPLEMENT 05/09/22 uyttbcvzlmbh-grccfxke-wtffyv tablet 1 tab PO DAILY HEALTH MAINTENANCE 05/09/22 nicotine (polacrilex) 4 mg gum (Nicorette) 4 mg buccal Q2H 05/09/22 albuterol sulfate 90 mcg/actuation aerosol inhaler 2 puff inhalation Q6H PRN shortness of breath or wheezing #8.5 grams 05/11/22 benzonatate 100 mg capsule 200 mg PO TID PRN COUGH #30 caps 05/11/22 guaifenesin 1,200 mg tablet, extended release 12 hr (Mucus Relief ER) 1,200 mg PO BID #14 tabs 05/11/22 omeprazole 40 mg capsule,delayed release 40 mg PO DAILY #30 caps 05/11/22 prednisone 20 mg tablet 40 mg PO DAILY #10 tabs 05/11/22 sennosides 8.6 mg-docusate sodium 50 mg tablet (Stool Softener-Stimulant Laxative) 2 tab PO BID PRN PRN Constipation #0 tabs 05/11/22 Hospital Course Summary of Care Provided Hospital Course: Patient 76-year-old female who is being admitted for acute worsening of shortness of breath for 3 along with productive cough and tachypnea. 1. Most likely COPD exacerbation: Patient is being admitted in PCU. She has not been formally diagnosed COPD with PFT. DuoNeb every 4 hourly, Solu-Medrol 40 mg IV every 8 hourly, incentive spirometry, Zithromax, Mucinex and PEP.Sputum culture and blood culture has been ordered. Urinary antigens are ordered. Rapid SARS-CoV-2 and flu antigen are negative. Chest x-ray not showing airspace opacity/consolidation. 05/10: Continue bronchodilator DuoNeb every 4 hourly, IV Solu-Medrol, Mucinex, incentive spirometry and Pep. No fever. Tachypnea is better. Urinary antigens for Legionella and Streptococcus are negative. 05/11: Patient's symptoms, tachypnea and hypoxia improved. Patient completed 3 days of Zithromax 500 mg daily. Patient home oxygen qualification test shows 92% on ambulation on room air therefore does not qualify for oxygen. Hypoxia resolved. Patient given a prescription for prednisone burst therapy 40 mg daily for 5 days, albuterol inhaler, Mucinex. Appointment was made with in [facility] with Dr. Marie on May 23, 2022 2. Hypotension in ED, most likely due to hemodynamic fluid shift: Patient has recovered after IV fluid. Patient not on antihypertensive medication. Continue IV fluid Ringer lactate 100 mL/h. Monitor intake and output 05/10: Patient is maintaining blood pressure 116/57. Hypotension resolved. Procalcitonin mildly elevated. I do not think patient has sepsis therefore sepsis ruled out. 05/11: Sepsis ruled out. Hypotension resolved. BP 111/51. No fever 3. Chronic smoker: Patient counseled to quit smoking. On nicotine gum. Patient does not like nicotine patch. 4. Chronic moderate protein calorie malnutrition probably from COPD/smoking: Patient has moderate muscle atrophy of extremities, loss of subcutaneous fat and look overall thin. BMI 18.7 kg/m?. VTE prophylaxis: Moderate risk. Lovenox 40 mg subcu daily Discharge medication reconciliation done. Discharge follow-up instructions completed. Discharge process discussed with the patient and all questions were answered to patient's satisfaction. Total time spent, exact 35 minutes on discharge meds reconciliation, examination, coordination of care with nurses and ancillary staff, review of imaging and blood test and discussion with the patient on follow-up instructions. Living will/advanced directive/end of life care: Patient stated she had living will when her was alive back in 70s. After discussion of benefits/risks procedures involved with full code, DNR CC arrest and DNR CC, the patient and her daughter near the bedside opted for full code. Patient does want artificial life support including intubation, tube feed, ventilator and/chest compression, central venous catheter, vasopressor and DC shock if needed Clinical Impression(s) from Imaging Studies Chest X-Ray 05/09/22 06:51 IMPRESSION: Hyperinflation and COPD with scarring at the right lung base. Microbiology Past 72 Hours 05/09/22 16:10 Urine, Random Streptococcus pneumoniae Antigen (M - Final 05/09/22 16:10 Urine, Random Legionella Antigen - Final 05/09/22 07:02 Nasal Secretion SARS-CoV-2 & FLU Antigen (Rapid) - Final Laboratory Results 05/09/22 07:00: Magnesium 2.2 05/09/22 10:07: Urine Color Yellow, Urine Clarity Clear, Urine pH 5.0, Ur Specific [place] 1.030, Urine Protein 15 H, Urine Glucose (UA) Normal, Urine Ketones 150 A*, Urine Occult Blood 10 H, Urine Nitrite Negative, Urine Bilirubin Negative, Urine Urobilinogen Normal, Ur Leukocyte Esterase 25 H, Urine RBC 0-5 SEEN, Urine WBC 0-5 SEEN, Ur Squamous Epith Cells 0-5 SEEN, Urine Bacteria 0 SEEN, Urine Mucus 4+ 05/09/22 11:20: Procalcitonin 0.13 H 05/10/22 05:40: WBC 6.1, RBC 3.95 L, Hgb 12.7, Hct 37.9, MCV 95.9, MCH 32.2 H, MCHC 33.5, RDW Std Deviation 45.8 H, RDW Coeff of James 12.9, Plt Count 187, MPV 10.0, Immature Gran % (Auto) 0.500, Neut % (Auto) 69.0, Lymph % (Auto) 17.8 L, Archuleta % (Auto) 12.5 H, Eos % (Auto) 0.0, Baso % (Auto) 0.2, Absolute Neuts (auto) 4.2, Absolute Lymphs (auto) 1.08, Nucleated RBC % 0 05/10/22 05:40: Sodium 139, Potassium 4.0, Chloride 106, Carbon Dioxide 31.0, Anion Gap 2 L, BUN 10, Creatinine 0.45 L, Estim Creat Clear Calc 34.99, Est GFR (MDRD) Af Amer 173, Est GFR (MDRD) Non-Af 143, BUN/Creatinine Ratio 22.0 H, Glucose 122 H, Calcium 8.3 L 05/09/22 11:20: Procalcitonin 0.13 H Physical Exam Narrative Patient shortness of breath/dyspnea at rest has resolved. Patient wheezing is also decreased. Physical exam: General: Alert, Oriented x3, Cooperative, BMI 18.7 kg/m? HEENT: Atraumatic, PERRLA, EOMI, Normocephalic Oral: No Gingival or Mucosal Lesions/ Ulcerations Neck: Supple, No JVD, Negative Carotid Bruits Lungs: Air entry diminished in both lungs but much improved. Mild occasional expiratory rhonchi. Wheezing resolved. Mild hypoxia Cardiovascular: Regular rate, Regular Rhythm, Normal S1, Normal S2, No murmurs Abdomen: Bowel Sounds Present, Soft, Non Tender, Non-Distended : No renal angle tenderness. No suprapubic tenderness. Extremities: No edema, Capillary Refill Less than 3 Seconds Skin: No rashes, No breakdown Musculoskeletal: No Tenderness to Palpation of Joints or Extremities. Moderate muscle atrophy of extremities. ROM full. Neurological: Cranial nerves II-XII grossly intact, DTR 2+/4 and Symmetrical, Neuro grossly intact Psych/Mental Status: Normal Affect, Appropriate. Weight / BMI Weight Weight: 101 lb 6.602 oz Body Mass Index (BMI) 18.7 ABG / Lab / Microbiology Data Result Diagrams: 05/11/22 04:33 05/11/22 04:33 Laboratory: Laboratory Results - last 24 hr 05/11/22 04:33: WBC 8.4, RBC 3.87 L, Hgb 12.2, Hct 36.9 L, MCV 95.3, MCH 31.5, MCHC 33.1, RDW Std Deviation 46.7 H, RDW Coeff of James 13.2, Plt Count 220, MPV 10.0, Immature Gran % (Auto) 1.200 H, Neut % (Auto) 83.2 H, Lymph % (Auto) 11.0 L, Archuleta % (Auto) 4.5, Eos % (Auto) 0.0, Baso % (Auto) 0.1, Absolute Neuts (auto) 7.0, Absolute Lymphs (auto) 0.93, Nucleated RBC % 0 05/11/22 04:33: Sodium 140, Potassium 3.3 L, Chloride 104, Carbon Dioxide 29.0, Anion Gap 7, BUN 13, Creatinine 0.53 L, Estim Creat Clear Calc 34.99, Est GFR (MDRD) Af Amer 144, Est GFR (MDRD) Non-Af 119, BUN/Creatinine Ratio 24.4 H, Glucose 157 H, Calcium 8.6 Microbiology: Microbiology 05/09/22 10:07 Urine, Clean Catch Urine Culture - Final Mixed Gram Positive Organisms 05/09/22 16:10 Urine, Random Streptococcus pneumoniae Antigen (M - Final 05/09/22 16:10 Urine, Random Legionella Antigen - Final 05/09/22 07:02 Nasal Secretion SARS-CoV-2 & FLU Antigen (Rapid) - Final D/C Instructions Discharge Diet: No restrictions Call your doctor if you observe: Fever of 101 or Higher, Coldness, Increased Pain, Numbness or Tingling, Change in Color, Inability to urinate, Inability to have a bowel movement, Using more than 1 pad per hour, Shortness of breath, Dizziness, Fainting spells, Swelling in the ankles, Chest pain, Prolonged hiccupping, Increased palpitations (irregular heartbeat), Calf discomfort and Uncontrolled pain Meaningful Use Info Meaningful Use Diagnoses (Choose all that apply): None applicable Discharge Plan Admission Admit Date/Time: 05/09/22 11:11 Primary Reason for Your Visit: COPD exacerbation Attending Provider: Domingo Adame Primary Care Provider: Ameena Agee Discharge Orders/Prescriptions Prescriptions: New sennosides-docusate sodium [Stool Softener-Stimulant Laxat] 8.6-50 mg Tablet 2 tab PO BID PRN PRN (Reason: Constipation) Qty: 0 0RF Rx Instructions: OTC benzonatate 100 mg Capsule 200 mg PO TID PRN (Reason: COUGH) Qty: 30 0RF Mucus Relief ER 1,200 mg Tablet Extended Release 12hr 1,200 mg PO BID Qty: 14 0RF prednisone 20 mg tablet 40 mg PO DAILY Qty: 10 0RF omeprazole 40 mg capsule,delayed release(DR/EC) 40 mg PO DAILY Qty: 30 0RF albuterol sulfate 90 mcg/actuation HFA aerosol inhaler 2 puff inhalation Q6H PRN (Reason: shortness of breath or wheezing) Qty: 8.5 0RF Continued ginkgo biloba 40 mg Tablet 40 mg PO DAILY Rx Instructions: give with meal/snack nicotine (polacrilex) [Nicorette] 4 mg Gum 4 mg BUCCAL Q2H sglcebfilrgnkrki-HSU-ktkktwv 2-20-325 mg Tablet, Effervescent 2 ea PO BID PRN (Reason: Heartburn) nxzaaapqndkw-rcylhmhp-uslhaq Tablet 1 tab PO DAILY cholecalciferol (vitamin D3) [Vitamin D3] 25 mcg (1,000 unit) Tablet 25 mcg PO DAILY Caltrate + D3 Plus Minerals 300 mg-800 unit -25 mg-0.5 mg Tablet 1 tab PO DAILY Referrals / Follow Up: Ameena Agee MD [Primary Care Provider] - Randy Marie MD [Med Staff - Active Staff] - 05/23/22 8:50 am Disposition Disposition (needs filled in before D/C Order can be placed): Home, Self Care Charges/Coding Visit Charges Inpatient E&M: 44353 Disch Hosp
--- NOTE | 2022-05-11 13:07 | CASEMGMT ---
Per Ramya POP, pt does not qualify for home oxygen. Pt is scheduled to f/u with pulmonary office in about 2weeks. Pt voices no further questions/concerns/needs with discharge. Dotty POP CM
== END 2022-05-11 13:21 | disposition home or self-care (01) | DRG 191 ==
LOC: ED 11:03 → PCU 11:29
PROVIDERS: Emergency Medicine; Admitting Provider Internal Medicine; Emergency Provider Emergency Medicine; PCP Internal Medicine; Visit Provider Internal Medicine
DX: J44.1 Chronic obstructive pulmonary disease with (acute) exacerbation (principal); E44.0 Moderate protein-calorie malnutrition; Z68.1 Body mass index [BMI] 19.9 or less, adult; I95.9 Hypotension, unspecified; R11.2 Nausea with vomiting, unspecified; F17.210 Nicotine dependence, cigarettes, uncomplicated; E86.0 Dehydration; R09.02 Hypoxemia; Z20.822 Contact with and (suspected) exposure to COVID-19; Z79.899 Other long term (current) drug therapy
CPT/HCPCS: 36415; 71045; 80048; 80053; 81001; 83605; 83735; 84145; 84484; 85025; 85610; 85730; 87040; 87086; 87088; 87428; 87449; 93005; 94640; 94667; 94668; 99251; 99285; J7030; J7120; A4216; G0463

== ENCOUNTER → 2022-05-23 | Outpatient (CLI) | payer MEDICARE, OTHER, SELFPAY ==
[2022-05-23 11:21] LABS: Bacteria 0 SEEN /hpf (None Seen); Red Blood Cells-Urine 0 SEEN /hpf (0-5); Squamous Epithelial Cells - UA 0 SEEN /hpf (5-10); White Blood Cells 0 SEEN /hpf (0-5)
[2022-05-23 11:33] LABS: Color, Urine Yellow (Yellow); Glucose, Dipstick Normal (Normal); Ketone-Dipstick Negative (Negative); Leukocyte Esterase-Dipstick Negative /ul (Negative); Nitrite-Dipstick Negative (Negative); Occult Blood-Urine Negative /ul (Negative); Protein-Dipstick Negative (Negative); Specific Gravity, Urine 1.015 (1.002-1.030); Urine Bilirubin Dipstick Negative (Negative); Urine Clarity Clear (Clear); Urine Urobilinogen Normal (Normal); Urine pH 6.5 (5.0 - 8.0)
[2022-05-23 11:45] LABS: Mucous, Urine 3+ /hpf (<or=2+)
== END | disposition home or self-care (01) ==
LOC: PAVLAB 10:52 → LABSPEC 10:55
PROVIDERS: PCP Internal Medicine; Referring Provider Internal Medicine; Visit Provider Internal Medicine
DX: J44.9 Chronic obstructive pulmonary disease, unspecified (principal); N39.0 Urinary tract infection, site not specified
CPT/HCPCS: 81001; 87070; 87205

== ENCOUNTER → 2022-05-31 | Outpatient (CLI) | payer MEDICARE, OTHER, SELFPAY ==
--- NOTE | 2022-05-31 08:38 | RAD_ITS ---
STUDY: X-RAY CHEST REASON FOR EXAM: Female, 76 years old. COPD exacerbation. TECHNIQUE: Frontal and lateral views of the chest. COMPARISON: May 09, 2022. FINDINGS: Marked hyperinflation with flattening of the hemidiaphragms, compatible with COPD, unchanged. There is no demonstrated pleural abnormality. Borderline cardiomegaly with aortic tortuosity unchanged. Calcified mediastinal and hilar lymph nodes unchanged. Normal visualized pulmonary arteries. Normal visualized thoracic spine. Normal visualized ribs, clavicles, and shoulders. There is no demonstrated abnormality of the visualized soft tissue structures of the upper abdomen. RAD/Chest PA and Lateral IMPRESSION: Stable borderline cardiomegaly with findings compatible with marked COPD. No acute finding. Electronically Signed: Albert Marino, at 10:36 EST ,
--- NOTE | 2022-05-31 14:53 | PFTCOMP_ITS ---
COMPLETE PULMONARY FUNCTION TEST INTERPRETATION Brief HPI: Patient is a 76-year-old female, currently under the care of Dr. Marie, who presents to [facility] for complete pulmonary function tests secondary to diagnosis of COPD. Respiratory therapist reports good effort and reproducible results. Interpretation: Forced expiration spirometry shows a moderately severe large airways obstructive ventilatory defect with an FEV1 of 59% predicted. There is no significant bronchodilator response by strict ATS criteria. Spirograms are of good quality and plateau slowly, indicating slowly emptying areas of the lungs. The respiratory flow volume loop shows decreased expiratory flow rates at all lung volumes consistent with airway obstruction. Lung volumes by body plethysmography show a normal total lung capacity at 3.76 L, 88% predicted. All other lung volumes are within normal limits. Diffusion capacity by carbon monoxide is at the lower limit of normal at 70% predicted. The airway resistance is elevated. No previous pulmonary function tests were available for review. Impression: Irreversible moderately severe large airways obstructive ventilatory defect with relatively preserved diffusion capacity
== END | disposition home or self-care (01) ==
PROVIDERS: PCP Internal Medicine; Referring Provider Internal Medicine; Visit Provider Internal Medicine
DX: J44.1 Chronic obstructive pulmonary disease with (acute) exacerbation (principal); Z87.891 Personal history of nicotine dependence
CPT/HCPCS: 71046; 94060; 94726; 94729

== ENCOUNTER → 2022-07-22 | Outpatient (CLI) | payer MEDICARE, OTHER, SELFPAY ==
--- NOTE | 2022-07-22 12:35 | CT_ITS ---
STUDY: LOW DOSE CT LUNG CANCER SCREENING REASON FOR EXAM: Female, 76 years old. Abnormal chest xray, smoker, 76 yo, wt loss -- do before next visit. Patient smoked 1 1/2 packs per day for 50 years. RADIATION DOSAGE (If Supplied By Facility): CTDIvol = ( 2.01 ) mGy, DLP = ( 70.97 ) mGycm TECHNIQUE: No contrast was administered. Low dose technique was utilized (average mAS-38 and kVp 120). 1.25 mm axial source images with a slice interval of 1.25-mm were reconstructed in lung windows. 2.5 mm axial source images with a slice interval of 2.5-mm were reconstructed in lung windows. 5.0 mm axial source images with a slice interval of 5.0-mm were reconstructed in soft tissue windows. COMPARISON: None. NODULES: Calcified granuloma in the posterior medial segment of the right lower lobe. Emphysema: Hyperinflation. Emphysematous changes with centrilobular changes more prominent in the upper lobes. Mild degree of linear scarring at the lung bases. Endobronchial lesion: None Aorta: Scattered atherosclerotic calcific plaques. CORONARY ARTERIES: Coronary artery calcification is seen. Heart: Unremarkable. Pulmonary artery: Mild enlargement of the pulmonary arteries. Mediastinal nodes: Calcified left infrahilar lymph node. Calcified bilateral hilar lymphadenopathy. Other chest and abdominal findings: CT/Low Dose CT Lung Screening IMPRESSION: Lung-RADS category 2 - Continue annual screening with LDCT in 12 months. IMPORTANT NOTES FOR USE: ACR Lung-RADS Version 1.1 Assessment Categories Release Date: 2018 Category: Coded 0-4 bases on nodule(s) with highest degree of suspicion. Negative screen is defined as categories 1 and 2; a positive screen is defined as categories 3 and 4. Category 3 and 4A nodules that are unchanged on interval CT should be coded as category 2, and individuals returned to screening in 12 months. Category 4X: Category 3 or 4 nodules with additional imaging findings that increase the suspicion of lung cancer, such as spiculation, GGN that doubles in size in 1 year, enlarged lymph notes, etc. Category Modifiers: S (significant finding unrelated to lung cancer) Electronically Signed: Alan Miranda MD at 14:16 EST ,
== END | disposition home or self-care (01) ==
LOC: CT 12:34
PROVIDERS: PCP Internal Medicine; Visit Provider Internal Medicine
DX: Z87.891 Personal history of nicotine dependence (principal)
CPT/HCPCS: 71271

== ENCOUNTER → 2022-10-10 | Outpatient (CLI) | payer MEDICARE, OTHER, SELFPAY | END | disposition home or self-care (01) | LOC: PSN 09:15 | PROVIDERS: PCP Internal Medicine; Referring Provider Internal Medicine; Visit Provider Internal Medicine | DX: Z00.00 Encounter for general adult medical examination without abnormal findings (principal) ==

== ENCOUNTER → 2022-10-21 | Outpatient (CLI) | payer MEDICARE, OTHER, SELFPAY ==
--- NOTE | 2022-10-25 07:00 | PFT ---
INTRODUCTION: The patient is a 77-year-old female that presents for pulmonary function studies secondary to a diagnosis of asthma. Respiratory therapy reported good patient effort. Bronchodilators were used during testing. INTERPRETATION: Forced expiration spirometry demonstrated the presence of a moderately severe large airways obstructive ventilatory defect. There was a partial, although technically nonsignificant, response to aerosolized bronchodilators. Spirograms are of good quality but do not plateau indicating slow emptying of the lungs. IMPRESSION: Moderately severe large airways obstructive ventilatory impairment with partial, although technically nonsignificant, response to aerosolized bronchodilators.
== END | disposition home or self-care (01) ==
LOC: PSN 09:07
PROVIDERS: PCP Internal Medicine; Referring Provider Internal Medicine; Visit Provider Internal Medicine
DX: J45.909 Unspecified asthma, uncomplicated (principal)
CPT/HCPCS: 94060

== ENCOUNTER → 2023-07-25 | Outpatient (CLI) | payer MEDICARE, OTHER, SELFPAY ==
--- NOTE | 2023-07-25 07:43 | CT_ITS ---
STUDY: LOW DOSE CT LUNG CANCER SCREENING REASON FOR EXAM: Female, 78 years old. smoker. Patient smoked 1 pack per day for 50 years. COPD. RADIATION DOSAGE (If Supplied By Facility): CTDIvol = ( 3.02 ) mGy, DLP = ( 104.20 ) mGycm TECHNIQUE: No contrast was administered. Low dose technique was utilized (average mAS-38 and kVp 120). 1.25 mm axial source images with a slice interval of 1.25-mm were reconstructed in lung windows. 2.5 mm axial source images with a slice interval of 2.5-mm were reconstructed in lung windows. 5.0 mm axial source images with a slice interval of 5.0-mm were reconstructed in soft tissue windows. COMPARISON: Comparison is made with prior study dated July 22, 2022. NODULES: Emphysema: Hyperinflation. Emphysematous changes more pronounced in the upper lobes with centrilobular changes. Endobronchial lesion: None Aorta: Aortic calcification. CORONARY ARTERIES: Coronary artery calcification is seen. Heart: Unremarkable Pulmonary artery: Unremarkable Mediastinal nodes: Calcified bilateral hilar lymph nodes. Other chest and abdominal findings: CT/Low Dose CT Lung Screening IMPRESSION: Lung-RADS category 2 - Continue annual screening with LDCT in 12 months. IMPORTANT NOTES FOR USE: ACR Lung-RADS Version 1.1 Assessment Categories Release Date: 2018 Category: Coded 0-4 bases on nodule(s) with highest degree of suspicion. Negative screen is defined as categories 1 and 2; a positive screen is defined as categories 3 and 4. Category 3 and 4A nodules that are unchanged on interval CT should be coded as category 2, and individuals returned to screening in 12 months. Category 4X: Category 3 or 4 nodules with additional imaging findings that increase the suspicion of lung cancer, such as spiculation, GGN that doubles in size in 1 year, enlarged lymph notes, etc. Category Modifiers: S (significant finding unrelated to lung cancer) Electronically Signed: Alan Miranda MD at 11:13 EST ,
== END | disposition home or self-care (01) ==
PROVIDERS: PCP Internal Medicine; Referring Provider Nurse Practitioner Acute Care; Visit Provider Nurse Practitioner Acute Care
DX: F17.210 Nicotine dependence, cigarettes, uncomplicated (principal)
CPT/HCPCS: 71271

== ENCOUNTER → 2024-07-26 | Outpatient (CLI) | payer MEDICARE, OTHER, SELFPAY ==
--- NOTE | 2024-07-26 12:38 | CT_ITS ---
PROCEDURE: LOW DOSE CT LUNG SCREENING REASON FOR EXAM: Patient has smoked 1 pack per day for 30 years. TECHNIQUE: Low Dose CT Lung Screening without contrast COMPARISON: Comparison is made with prior study dated July 25, 2023. FINDINGS: PULMONARY NODULES: (Only nodules >6mm are reported) Nodules described below are on series unless otherwise specified. Pulmonary Nodules: No concerning pulmonary nodules. Hardware:None Lymph Nodes:No mediastinal hilar or axillary lymphadenopathy. Heart and Vasculature:Normal heart size. No pericardial effusion.Thoracic aorta and pulmonary arteries have normal contours; noncontrast technique limits evaluation. Coronary Artery Calcifications: Choose 1 Lungs and Airways: Hyperinflation. Mild degree of emphysematous changes more prominent in the upper lobes. Pleura:No pleural effusion. No pneumothorax. Upper Abdomen:Visualized portions of the upper abdominal viscera are unremarkable. Bones:Degenerative changes of the thoracic spine. CT/Low Dose CT Lung Screening IMPRESSION: 1. BASED ON THE ACR LUNG RADS FOR THE MOST SUSPICIOUS NODULE (IF ANY) DESCRIBE D IN THIS REPORT, THE OVERALL LUNG RA 2 DS SCORE IS 2. 2. SMOKING CESSATION COUNSELING IS RECOMMENDED IF THE PATIENT IS STILL SMOKING . 3. OTHER SIGNIFICANT FINDINGSNone. One or more dose reduction techniques were used (e.g., Automated exposure contr ol, adjustment of the mA and/or kV according to patient size, use of iterative reconstruction technique). The following information is provided for reference:Lung-RADS 2021 Assessment C ategories. Additional information involving Lung-RADS is available at www.acr.org. 0-INCOMPLETE 1-NEGATIVE:No nodules or definitely benign nodules. Complete, central, popcorn , or centric ring calcifications OR fat containing 2-BENIGN APPEARANCE (based on imaging features or indolent behavior). Juxtaple ural nodule: < 10mm AND solid; smooth margins; oval, entiform, or triangular shape Solid nodule: <6mm at baseline or new< 4mm Part solid Nodule: < 6mm total mean diameter at baseline Nonsolid nodule:(GGN) < 30mm OR >=30mm stable or slowly growing Airway nodule, subsegmental at baseline, new, or stable Category 3 nodule stabl e or decreased in size at 6-month follow-up CT or Category 3 or 4A nodules that resolve on follow-up OR category 4B findings prov en to be benign following diagnotic work up. 3 - Probably Benign (Based on imaging features or behavior) Solid Nodule: >= 6 to <8mm at baseline OR new 4 to <6mm Part-solid nodule: >= 6mm toal mean diam. with solid component <6mm at baseline OR new < 6mm total mean diam. Non-solid nodule: GGN >= 30mm at baseline or new Atypical pulmonary cyst: Growing cystic component (mean diam.) of thick-walled cyst Category 4A nodule stable or decreased in size at 3-month follow-up CT (excl.ai rway). 4A - Suspicious Solid nodule: >=8 to < 15mm at baseline OR growing < 8mm OR new 6 to < 8mm Part solid nodule: >= 6mm total mean diam. w/ solid component >=6mm to < 8mm at baseline OR new or growing < 4mm solid component Airway nodule, segmental or more proximal at baseline or new Atypical pulmonary cyst: Thick-walled OR multilocular at baseline OR becomes mu ltilocular 4B - Very Suspicious Airway nodule, segmental or more proximal, and stable or growing Solid nodule: >= 15mm at baseline OR new or growing >= 8mm Part solid nodule: Solid component >= 8mm OR new or growing >= 4mm solid compon ent Atypical pulmonary cyst: Thick-walled with growing wall thickness/nodularity OR Growing multilocular (mean diam.) OR Multilocular with increased loculation or new/increased opacity Slow-growing solid or part solid nodule w/ growth over multiple screening exams 4X - Very Suspicious Category 3 or 4 nodules with additional features that increase the suspicion fo r lung cancer. S - Clinically Significant or potentially significant findings (non-lung cancer ) Reading Location: [id number]
== END | disposition home or self-care (01) ==
LOC: CT 12:37
PROVIDERS: PCP Nurse Practitioner Acute Care; Referring Provider Nurse Practitioner Acute Care; Visit Provider Nurse Practitioner Acute Care
DX: Z87.891 Personal history of nicotine dependence (principal)
CPT/HCPCS: 71271